=== PATIENT | female | born 1995 | race Asian ===

== ENCOUNTER 2024-03-29 07:05 | Outpatient (REF) | payer BC, SELFPAY ==
--- NOTE | ~2024-03-29 | US_ITS ---
EXAMINATION: US THYROID CLINICAL INFORMATION: Hypothyroidism COMPARISON: None available. TECHNIQUE: Linear transducer grayscale and color Doppler examination with attention to the region of the thyroid. FINDINGS: SIZE: Measurements of the thyroid lobes and nodules are given in sagittal, anteroposterior and transverse dimensions respectively. Right Thyroid Lobe: 3.4 x 1.3 x 1.6 cm, volume 3.7 mL. Parenchyma: The gland echotexture is homogeneous. Thyroid vascularity is increased. Left Thyroid Lobe: 2.1 x 1.0 x 1.0 cm, volume 1.47 mL. Parenchyma: The gland echotexture is homogeneous. Thyroid vascularity is increased. Isthmus: 0.2 cm in maximum AP dimension. No thyroid nodules. US/US thyroid IMPRESSION: Small hypervascular thyroid. No thyroid lesions. Electronically signed by: Lelo Snyder MD 03/29/2024 04:43 PM EST
== END 2024-03-29 07:06 | disposition home or self-care (01) ==
LOC: HO.UMASIMG 07:05
PROVIDERS: Visit Provider Family Medicine
DX: E03.9 Hypothyroidism, unspecified (principal); E04.1 Nontoxic single thyroid nodule
CPT/HCPCS: 76536